=== PATIENT | female | born 1955 | race Caucasian/White ===

== ENCOUNTER → 2017-02-09 | Outpatient (CLI) | payer MEDICAID | LOC: BMCIMAGING 09:16 | PROVIDERS: ATTEND Family Medicine | DX: M54.89 Other dorsalgia (principal); Z01.419 Encounter for gynecological examination (general) (routine) without abnormal findings; R94.6 Abnormal results of thyroid function studies; R73.09 Other abnormal glucose | CPT/HCPCS: 84481-90 ==